=== PATIENT | male | born 1970 | race Caucasian/White ===

== ENCOUNTER 2023-06-28 19:15 | Outpatient (CLI) | payer OTHER | END 2023-06-28 19:16 | disposition critical access hospital (66) | LOC: EMS 19:15 | DX: S89.91XA Unspecified injury of right lower leg, initial encounter (principal); V23.49XA Other motorcycle driver injured in collision with car, pick-up truck or van in traffic accident, initial encounter; Y92.414 Local residential or business street as the place of occurrence of the external cause | CPT/HCPCS: A0425; A0429 ==

== ENCOUNTER 2023-06-28 19:35 | Emergency (ER) | payer OTHER ==
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
[2023-06-28] MEDS ORDERED: oxyCODONE 5 MG TABLET PO STA (20:07)
[2023-06-28] MEDS ORDERED: IBUPROFEN 800 MG TABLET PO STA (20:07)
--- NOTE | 2023-06-28 20:52 | XRAY Report ---
PROCEDURE: Knee 4 View RT INDICATIONS: KNEE INJ TECHNIQUE: 4 views of the right knee were acquired. COMPARISON: None. FINDINGS: Bones: There is a mildly displaced fracture through the proximal tibia laterally extending through th e lateral tibial plateau. No evidence of associated articular surface collapse. Soft tissues: There is a moderate to large joint effusion with a lipohemarthrosis. No suspicious sof t tissue calcifications or masses. IMPRESSION: 1. Mildly displaced fracture through the lateral tibial plateau. 2. Moderate to large joint effusion with lipohemarthrosis. Reviewed by: Trell Lainez MD on 06/28/2023 8:51 PM PDT Approved by: Trell Lainez MD on 06/28/2023 8:51 PM PDT Station ID: [id number]
[2023-06-28] MEDS ORDERED: KETOROLAC 15 MG/ML VIAL IVP STA (21:28)
[2023-06-28] MEDS ORDERED: HYDROmorphone 1 MG/ML CARPUJECT IVP STA (21:28)
[2023-06-28] MEDS ORDERED: oxyCODONE/ACET 5/325 Prepack 4 PO STA (21:54)
--- NOTE | 2023-06-28 22:17 | CT Report ---
PROCEDURE: LOWER EXTREMITY WO - RT INDICATIONS: Tibial plateau fracture TECHNIQUE: Noncontrast 3-mm axial sections acquired from the distal tibial shaft to the talar dome, with coronal and sagittal reformats. For radiation dose reduction, the following was used: automated exposure c ontrol, adjustment of mA and/or kV according to patient size. COMPARISON: None. FINDINGS: Image quality: Excellent. Bones: There is a comminuted fracture of the proximal tibia predominantly involving the lateral tibi al plateau. There is associated mild articular surface depression by approximately 0.2 cm. Associated lateral plateau cleavage demonstrated. Fracture extends to the tibial spine. The distal femur and vi sualized proximal fibula appear intact. Findings are compatible with a Schatzker type II fracture. Soft tissues: There is a moderate joint effusion with a lipohemarthrosis. Pretibial subcutaneous marcelino ma demonstrated. Impression: 1. Comminuted fracture of the lateral tibial plateau consistent with a Schatzker type II fracture. 2. Moderate joint effusion with a lipohemarthrosis. Reviewed by: Trell Lainez MD on 06/28/2023 10:16 PM PDT Approved by: Trell Lainez MD on 06/28/2023 10:16 PM PDT Station ID: [id number]
[2023-06-28 23:23] VITALS: BP 130/74; O2SAT 100
== END 2023-06-28 22:15 | disposition home or self-care (01) ==
LOC: ED 19:35
DX: S82.141A Displaced bicondylar fracture of right tibia, initial encounter for closed fracture (principal); V23.49XA Other motorcycle driver injured in collision with car, pick-up truck or van in traffic accident, initial encounter
CPT/HCPCS: 73564; 73700; 96374; 96375; 99284; A9270; J1170

== ENCOUNTER 2023-07-04 08:00 | Outpatient (CLI) | payer OTHER ==
--- NOTE | 2023-07-04 14:35 | XRAY Report ---
PROCEDURE: Knee 4 View RT INDICATIONS: RIGHT TIBIAL PLATEAU FRACTURE TECHNIQUE: 4 views of the right knee(s) were acquired. COMPARISON: CT knee 06/28/2023 FINDINGS: Bones: Stable appearance of comminuted mildly displaced lateral tibial plateau fracture. There has b een no additional height loss compared to prior exam. No suspicious bony lesions. Soft tissues: Persistent knee joint effusion. No suspicious soft tissue calcifications or masses. IMPRESSION: Stable appearance of comminuted lateral tibial plateau fracture. Reviewed by: Rachel Milton MD on 07/04/2023 2:34 PM PDT Approved by: Rachel Milton MD on 07/04/2023 2:34 PM PDT Station ID: [id number]
== END 2023-07-04 23:59 | disposition home or self-care (01) ==
LOC: DI.WOS 08:00
PROVIDERS: ATTEND Orthopaedic Surgery
DX: S82.141D Displaced bicondylar fracture of right tibia, subsequent encounter for closed fracture with routine healing (principal)

== ENCOUNTER 2023-07-10 08:00 | Outpatient (CLI) | payer OTHER ==
--- NOTE | 2023-07-10 13:38 | XRAY Report ---
PROCEDURE: Knee 4 View RT INDICATIONS: RIGHT TIBIAL PLATEAU FRACTURE TECHNIQUE: 4 views of the right knee were acquired. COMPARISON: Right knee radiographs 07/04/[address] 06/28/2023 FINDINGS: Bones: Comminuted intra-articular fracture at the lateral tibial plateau is redemonstrated without s ignificant change in alignment. No new osseous lesion is seen. Soft tissues: Moderate knee joint effusion. No suspicious soft tissue calcifications. IMPRESSION: Comminuted lateral tibial plateau fracture again seen with unchanged alignment. Reviewed by: Jeremiah Salazar MD on 07/10/2023 1:37 PM PDT Approved by: Jeremiah Salazar MD on 07/10/2023 1:37 PM PDT Station ID: [id number]
== END 2023-07-10 23:59 | disposition home or self-care (01) ==
LOC: DI.WOS 08:00
PROVIDERS: ATTEND Orthopaedic Surgery
DX: S82.121D Displaced fracture of lateral condyle of right tibia, subsequent encounter for closed fracture with routine healing (principal)

== ENCOUNTER 2023-08-07 08:00 | Outpatient (CLI) | payer OTHER ==
--- NOTE | 2023-08-07 12:20 | XRAY Report ---
PROCEDURE: Knee 4 View RT INDICATIONS: RIGHT TIBIA FRACTURE TECHNIQUE: 4 views of the right knee were acquired. COMPARISON: Right knee radiographs 07/10/2023, CT 06/28/2023 FINDINGS: Bones: Comminuted nondisplaced fracture of the lateral tibial plateau is again seen with unchanged a lignment. Soft tissues: Moderate knee joint effusion. No suspicious soft tissue calcifications. IMPRESSION: Comminuted lateral tibial plateau fracture redemonstrated with unchanged alignment. Reviewed by: Jeremiah Salazar MD on 08/07/2023 12:19 PM PDT Approved by: Jeremiah Salazar MD on 08/07/2023 12:19 PM PDT Station ID: [id number]
== END 2023-08-07 23:59 | disposition home or self-care (01) ==
LOC: DI.WOS 08:00
PROVIDERS: ATTEND Orthopaedic Surgery
DX: S82.141D Displaced bicondylar fracture of right tibia, subsequent encounter for closed fracture with routine healing (principal)

== ENCOUNTER 2023-09-25 08:00 | Outpatient (CLI) | payer OTHER ==
--- NOTE | 2023-09-25 18:45 | XRAY Report ---
PROCEDURE: Knee 4 View RT INDICATIONS: RIGHT KNEE FRACTURE TECHNIQUE: 4 views of the knee(s) were acquired. COMPARISON: Right knee radiograph on August 07, 2023. FINDINGS: Bones: Comminuted, mildly displaced fracture of the lateral tibial plateau with intra-articular exten jenny involving the articular surface and lateral tibial spine appears similar to the prior exam with no significant callus formation. Fracture planes remain conspicuous. Stable alignment with mild depre ssion of the articular surface. No new fracture or dislocation. No suspicious bony lesions. Soft tissues: Small knee joint effusion. No suspicious soft tissue calcifications or masses. IMPRESSION: Comminuted, mildly displaced fracture of the lateral tibial plateau with intra-articular extension ap pears similar to the prior exam with no significant interval osseous healing. Fracture plane remains conspicuous. Stable alignment. Reviewed by: Maldonado Townsend MD on 09/25/2023 6:44 PM PST Approved by: Maldonado Townsend MD on 09/25/2023 6:44 PM PST Station ID: [id number]
== END 2023-09-25 23:59 | disposition home or self-care (01) ==
LOC: DI.WOS 08:00
PROVIDERS: ATTEND Orthopaedic Surgery
DX: S82.141D Displaced bicondylar fracture of right tibia, subsequent encounter for closed fracture with routine healing (principal)

== ENCOUNTER 2024-01-01 07:34 | Outpatient (CLI) | payer OTHER ==
--- NOTE | 2024-01-01 14:04 | XRAY Report ---
PROCEDURE: Knee 4 View RT INDICATIONS: RIGHT KNEE FRACTURE TECHNIQUE: 4 views of the knee(s) were acquired. COMPARISON: Multiple comparison radiographs dating back to 06/28/2023. FINDINGS: Bones: Stable radiographic appearance of mildly comminuted fracture of the lateral tibial plateau in unchanged alignment. Fracture line remains visible. There is intra-articular extension as noted prev iously. Soft tissues: Small residual knee joint effusion. No suspicious soft tissue calcifications or masses . IMPRESSION: No significant radiographic changes of interval healing of known lateral tibial plateau fracture. Reviewed by: Devante Loomis MD on 01/01/2024 1:02 PM HUNTER Approved by: Devante Loomis MD on 01/01/2024 1:02 PM HUNTER Station ID: [id number]
== END 2024-01-01 23:59 | disposition home or self-care (01) ==
LOC: DI.WOS 07:34
PROVIDERS: ATTEND Orthopaedic Surgery
DX: S82.121D Displaced fracture of lateral condyle of right tibia, subsequent encounter for closed fracture with routine healing (principal)

== ENCOUNTER 2024-05-06 07:19 | Day surgery (SDC) | payer OTHER ==
[2024-05-06] MEDS: LACTATED RINGERS 1,000 ML IV ONE ×2 (07:24→10:10)
[2024-05-06] MEDS ORDERED: PROPOFOL 500 MG/50 ML 500 MG/50 ML VIAL ONE (07:53)
[2024-05-06] MEDS ORDERED: PROPOFOL 200 MG/20 ML VIAL IVP ONE ×2 (07:53→09:38)
[2024-05-06] MEDS ORDERED: lidocaine 1% 20 ML MDV ONE (09:04)
--- NOTE | 2024-05-06 09:04 | ANESTHESIA ---
Pre-Anesthesia VS, & Labs - Diagnosis elective sterilization - Procedure vasectomy Vital Signs: Temp Pulse Resp BP Pulse Ox O2 Flow Rate 36.3 C L 68 14 141/91 H 05/06/24 07:33 05/06/24 07:33 05/06/24 07:33 05/06/24 07:33 Height: 5 ft 7 in Weight (kg): 107 kg Body Mass Index: 36.9 BMI Classification: Obese Home Medications and Allergies Home Medications: Ambulatory Orders No Known Home Medications 04/29/24 No Known Home Medications 04/29/24 Allergies/Adverse Reactions: Allergies Allergy/AdvReac Type Severity Reaction Status Date / Time No Known Drug Allergies Allergy Verified 06/28/23 21:34 Anes History & Medical History - Medical History Cardiovascular: reports: High cholesterol Pulmonary: reports: None Gastrointestinal: reports: None Urinary: reports: None Musculoskeletal: reports: None Endocrine/Autoimmune: reports: None Skin: reports: Psoriasis - Surgical History Eyes Ears Nose Throat (EENT): reports: Other Exam General: Alert, Oriented x3, Cooperative Dental: WNL Mouth Openin Fingerbreadth Mallampati classification: III Thyromental Distance: 4-6 cm Plan Anesthesia Type: General Consent for Procedure(s) Verified and Reviewed: Yes Code Status: Attempt Resuscitation ASA classification: 2-Mild systemic disease Is this case an emergency?: No
[2024-05-06] MEDS: LIDOCAINE 1% 50 ML MDV SUBQ ONE ×2 (09:10)
[2024-05-06] MEDS ORDERED: HYDROcod/ACETAM 5/325 MG TABLET PO PRN (10:09)
--- NOTE | 2024-05-06 10:12 | Discharge Plan ---
Discharge Plan Problem Reviewed?: Yes Disposition: 01 Home, Self Care Condition: Good Diet: Regular Activity Restrictions: Additional Comments (as instructed) Shower Restrictions: No Driving Restrictions: No Instruction Topics: Vasectomy No Scalpel No Smoking: If you smoke, Please STOP! Call for help.
--- NOTE | 2024-05-06 10:12 | OPERATIVE REPORT ---
Operative Report - General Procedure Date: 05/06/24 Planned Procedure: Bilateral vasectomy Pre-Op Diagnosis: Elective sterilization Procedure Performed: Bilateral no scalpel vasectomy Post Op Diagnosis: Elective sterilization - Procedure Note Primary Surgeon: Bairon Anesthesia Provider: MICH Anesthesia Technique: Moderate sedation Pathology: none Estimated Blood Loss (mL): 0 Findings: routine vasectomy Complications: none - Other Other Information/Narrative: After informed consent obtained patient brought to the OR and laid in supine position. The patient was anesthetized per anesthesia protocols and then prepped and draped in usual sterile fashion. A formal timeout was performed reconfirming the patient, procedure and laterality He is vas deferens identified through his right hemiscrotum. 1% lidocaine was used as local. Using a sharp mosquito is scrotal tissue was dissected away and his vas sheath was grasped using a ring clamp. This was sharply incised and the vas was identified and pulled out. It was clamped on both sides and the intervening 1 cm segment was cauterized away. The ends were cauterized as well. The ends were suture-ligated with chromic suture and then the distal end was buried using a fascial interposition stitch using 3-0 chromic suture. There was no bleeding. His skin was closed using a 3-0 chromic horizontal mattress stitch. An identical procedure performed on the left side. Band-Aids were placed. This concluded the procedure and the patient tolerated the procedure well. All counts were correct. He will have a semen analysis performed in 3 months to confirm azoospermia.
[2024-05-06 10:27] VITALS: O2SAT 98
--- NOTE | 2024-05-06 10:35 | ANESTHESIA POST OP EVALUATION ---
Anesthesia Post Eval - Post Anesthesia Eval Vitals: Last Vital Signs Temp 36.4 C L 05/06/24 10:32 Pulse 55 L 05/06/24 10:32 Resp 16 05/06/24 10:32 BP 110/76 05/06/24 10:32 Pulse Ox 98 05/06/24 10:32 O2 Flow Rate CV Function Including HR & BP: Stable Pain Control: Satisfactory Nausea & Vomiting: Negative Mental Status: Baseline Respiratory Status: Airway Patent Hydration Status: Satisfactory Anesthesia Complications: None
[2024-05-06 10:38] VITALS: BP 110/76
== END 2024-05-06 07:20 | disposition home or self-care (01) ==
LOC: SDS 07:19
PROVIDERS: ATTEND Urology
DX: Z30.2 Encounter for sterilization (principal); E66.9 Obesity, unspecified; Z68.36 Body mass index [BMI] 36.0-36.9, adult
CPT/HCPCS: 55250; J7120